=== PATIENT | female | born 1990 | race Hispanic/Latino ===

== ENCOUNTER 2018-10-24 11:49 | Emergency (ER) | payer OTHER ==
[2018-10-24 12:07] VITALS: BP 133/81; PULSE 79; RESP 16; TEMP 97.7; O2SAT 100
[2018-10-24 12:08] VITALS: BMI 29.1
[2018-10-24] MEDS ORDERED: Sodium Chloride 0.9% 1,000 ML IV STA (12:34)
--- NOTE | 2018-10-24 12:55 | ED PDOC ---
Syncope/Near Syncope/Dizziness Time Seen by Provider: 10/24/18 12:25 Chief Complaint (Nursing): Syncope Chief Complaint (Provider): I passed out History Per: Patient History/Exam Limitations: no limitations Onset/Duration Of Symptoms: Sudden Onset Current Symptoms Are (Timing): Better Activity At Onset Of Symptoms: Had Just Stood up Associated Symptoms Preceding Syncopal Episode: Lightheadedness Seizure Or Post-ictal Symptoms: None Possible Causative Factor(s): Lightheaded W/Standing Fall Associated With With Symptoms: Positive Injury (head injury) Severity: Moderate Additional Complaint(s): 28yo female c/o headache after syncopal episode in bathroom this morning. Stated got out of bed, felt lightheaded, had ringing in ears, passed out awakening rapidly on bathroom floor. No preceeding symptoms and no change vision, speech, focal strength, sensation, coordination or mentation before. Denies incontinence or tongue bite. Denies prolonged period of confusion thereafter. States passed out once many years ago. Admits to flying home from [place] yesterday. Takes OCPs but disrupted last cycle when forgot pills on vacation. Past Medical History Reviewed: Historical Data, Nursing Documentation, Vital Signs Vital Signs: Last Vital Signs Temp 97.7 F 10/24/18 12:05 Pulse 79 10/24/18 12:05 Resp 16 10/24/18 12:05 BP 133/81 10/24/18 12:05 Pulse Ox 100 10/24/18 12:05 - Medical History PMH: No Chronic Diseases - Surgical History Surgical History: No Surg Hx - Family History Family History: States: Unknown Family Hx - Social History Current smoker - smoking cessation education provided: No - Allergies Allergies/Adverse Reactions: Allergies Allergy/AdvReac Type Severity Reaction Status Date / Time amoxicillin Allergy RASH Verified 10/24/18 12:09 Penicillins Allergy RASH Verified 10/24/18 12:09 - Laboratory Results Result Diagrams: 10/24/18 12:42 10/24/18 12:42 - ECG O2 Sat by Pulse Oximetry: 100 Medical Decision Making Medical Decision Making: workup for syncope with possible head injury initiated labs and CT imaging ordered IVF bolus analgesic for headache labs reviewed- reveal mild leukopenia and mild elev transaminases, unclear etiology mono added on, negative DDimer neg trop neg CT brain report reviewed and d/w patient labs discussed w patient and need for followup/repeat testing Monitored 4+hrs in ED w gradual improvement. Vitals stable. Discussed post concussion precautions, need for followup, and indications for return to ER Disposition - Clinical Impression Clinical Impression: Syncope, Post concussion syndrome, Abnormal LFTs - Patient ED Disposition Is Patient to be Admitted: No Counseled Patient/Family Regarding: Studies Performed, Diagnosis, Need For Followup - Disposition Referrals: [facility] [Provider Group] [facility]] Hubert Pendleton MD [Medical Doctor] - Disposition: Routine/Home Disposition Time: 16:30 Condition: STABLE Additional Instructions: Drink plenty of fluids. Repeat liver function tests in 2 weeks, otherwise see GI specialist for further workup. Return to ER for any worsening, new or change in symptoms. Instructions: Syncope (Fainting), Concussion, Adult (DC) Forms: [facility] ([place]itanian), [facility] ED School/Work Excuse
[2018-10-24 13:29] LABS: BASO % 0.2 % (0.0-2.0); EOS % 0.5 % (0.0-4.0); HEMOGLOBIN 12.2 g/dL (12.0-16.0); LYMPH # 1.6 K/uL (1.0-4.3); LYMPH % 43.1 % (20.0-40.0); MEAN CELL VOLUME 91.5 fl (81.0-99.0); MEAN CORPUSCULAR HEMOGLOBIN 30.1 pg (27.0-31.0); MEAN CORPUSCULAR HGB CONC 32.9 g/dL (33.0-37.0); MEAN PLATELET VOLUME 9.4 fl (7.2-11.7); MONO # 0.4 K/uL (0.0-0.8); MONO % 11.6 % (0.0-10.0); NEUT # 1.7 K/uL (1.8-7.0); NEUT % 44.6 % (50.0-75.0); NRBC % 0.1 % (0.0-0.0); RBC 4.06 Mil/uL (3.80-5.20); RED CELL DISTRIBUTION WIDTH 13.5 % (11.5-14.5); WHITE BLOOD COUNT 3.8 K/uL (4.8-10.8)
[2018-10-24 13:38] LABS: SQUAMOUS EPITHIAL 1 /hpf (0-5); URINE BACTERIA RARE (<OCC); URINE BILIRUBIN NEGATIVE (NEGATIVE); URINE BLOOD NEGATIVE (NEGATIVE); URINE CLARITY SLIGHTY-CLOUDY (Clear); URINE COLOR YELLOW (YELLOW); URINE GLUCOSE (UA) NEG (NEGATIVE); URINE LEUKOCYTE ESTERASE NEG Leu/uL (Negative); URINE PROTEIN NEGATIVE (NEGATIVE); URINE UROBILINOGEN 0.2-1.0 mg/dL (0.2-1.0)
[2018-10-24 13:45] LABS: ALB/GLOB RATIO 1.2 (1.0-2.1); ALBUMIN 4.5 g/dL (3.5-5.0); ALT/SGPT 241 U/L (9-52); AST/SGOT 131 U/L (14-36); BLOOD UREA NITROGEN 9 mg/dl (7-17); CALCIUM 9.7 mg/dL (8.4-10.2); GFR NON-AFRICAN AMERICAN > 60
--- NOTE | 2018-10-24 14:00 | CT ---
Date of service: 10/24/2018 PROCEDURE: CT HEAD WITHOUT CONTRAST. HISTORY: Syncope following a head injury. COMPARISON: None available. TECHNIQUE: Axial computed tomography images were obtained through the head/brain without intravenous contrast. Supplemental Coronal and Sagittal projections created and reviewed. Radiation dose: Total exam DLP = 773.13 mGy-cm. This CT exam was performed using one or more of the following dose reduction techniques: Automated exposure control, adjustment of the mA and/or kV according to patient size, and/or use of iterative reconstruction technique. FINDINGS: HEMORRHAGE: No intracranial hemorrhage. BRAIN: No mass effect or edema. No atrophy or chronic microvascular ischemic changes. VENTRICLES: Unremarkable. No hydrocephalus. CALVARIUM: Unremarkable. PARANASAL SINUSES: Unremarkable as visualized. No significant inflammatory changes. MASTOID AIR CELLS: Unremarkable as visualized. No inflammatory changes. OTHER FINDINGS: None. IMPRESSION: No acute intracranial abnormalities. No significant findings to account for the clinical presentation.
[2018-10-24 14:05] LABS: PROTHROMBIN TIME 11.8 Seconds (9.8-13.1)
[2018-10-24 14:08] LABS: PARTIAL THROMBOPLASTIN TIME 27.5 Seconds (25.6-37.1)
[2018-10-24 14:53] LABS: D DIMER < 200 ng/mlDDU (0-230)
--- NOTE | 2018-10-24 18:04 | CARD ---
APPROVED REPORT Date of service: 10/24/2018 EKG Measurement Heart [id number] [place] [id number] [id number] <Conclusion> Normal sinus rhythm Normal ECG
== END 2018-10-24 16:54 | disposition home or self-care (01) ==
LOC: H.ER 11:49
DX: R55 Syncope and collapse (principal); F07.81 Postconcussional syndrome; R94.5 Abnormal results of liver function studies; Z88.0 Allergy status to penicillin
CPT/HCPCS: 70450; 80053; 81003; 81025; 83735; 84100; 84484; 85025; 85378; 85610; 85730; 86308; 93005; 96374; 99285; J1885; J7030